=== PATIENT | female | born 1970 | race Two or more races ===

== ENCOUNTER → 2021-11-29 | Emergency (ER) | payer BC, OTHER ==
[~2021-11-29] VITALS: Ht 152.4 cm; Wt 72.6 kg
[~2021-11-29] MED LIST: ASPirin 81 mg TAB PO ONE; LORazepam 0.5 MG TAB PO ONE; MECL1TAB42 PO; POTASSIUM EFFERVESENT TAB 25 MEQ PO ONE
[2021-11-29 14:56] VITALS: BP 172/88
[2021-11-29 15:59] LABS: Hemoglobin 13.4 g/dL (12.2-16.2); Mean Corpuscular Hemoglobin 30.7 pg (28.0-32.0); Mean Corpuscular Hgb Conc. 34.2 g/dL (32.0-36.0); Mean Corpuscular Volume 89.7 fL (80.0-100.0); Red Blood Cells 4.35 10^6/uL (4.0-5.20); Red Cell Distribution Width 13.1 % (11.8-14.3); White Blood Cell 8.8 10^3/uL (4.4-10.8)
[2021-11-29 16:06] LABS: Albumin 3.9 g/dL (3.4-5.0); BUN/Creatinine Ratio 15.1
[2021-11-29 16:10] LABS: Bilirubin, Total 0.6 mg/dL (0.2-1.0); Total Protein 7.6 g/dL (6.4-8.2)
[2021-11-29 16:23] LABS: Basophils % (manual) 0 (0.0-2.0); Blast Cells 0; Metamyelocytes % 0; Myelocytes % 0; Promyelocytes % 0; Reactive Lymphocytes 0
[2021-11-29 17:46] LABS: Band Neutrophils % (manual) 1; Eosinophils % (manual) 2 (0-7); Lymphocytes % (manual) 51 (10.0-50.0); Monocytes % (manual) 6 (0-12)
== END | disposition left against medical advice (07) ==
LOC: ER 14:56
DX: R00.2 Palpitations (principal); E87.6 Hypokalemia; E03.9 Hypothyroidism, unspecified; F41.9 Anxiety disorder, unspecified; R42 Dizziness and giddiness
CPT/HCPCS: 36415; 80053; 84443; 84484; 85007; 85027; 93005